=== PATIENT | male | born 1950 | race African-American/Black ===

== ENCOUNTER 2018-12-24 23:55 | Emergency (ER) | payer OTHER ==
[~2018-12-24] VITALS: Ht 188 cm; Wt 127.0 kg
[2018-12-24 23:58] VITALS: Ht 188 cm; Wt 127.0 kg
[2018-12-25 00:53] VITALS: BP 127/78
[2018-12-25 01:37] LABS: UA SPECIFIC GRAVITY 1.015 (1.005-1.035); microscopic required? YES; urine erythrocyte 1+ (NEGATIVE)
== END 2018-12-25 00:53 | disposition home or self-care (01) ==
LOC: ED 23:55
PROVIDERS: Emergency Medicine
DX: N39.0 Urinary tract infection, site not specified (principal); I10 Essential (primary) hypertension
CPT/HCPCS: 82962